=== PATIENT | female | born 1975 | race Caucasian/White ===

== ENCOUNTER 2016-11-24 22:50 | Emergency (ER) | payer OTHER ==
[2016-11-25 00:16] LABS: BASOPHIL 0.4 % (0-2); EOSINOPHIL 3.3 % (0-5); HCT 40.9 % (37.0-47.0); HGB 13.7 g/dl (12.5-16.0); LYMPHOCYTE 44.9 % (15-48); MCH 28.8 pg (25.0-31.0); MCHC 33.5 g/dL (32.0-36.0); MCV 86.1 fL (78.0-100.0); MONOCYTE 8.6 % (0-12); MPV 10.4 fL (6.0-9.5); NEUTROPHIL 42.8 % (41-80); PLT 211 K/uL (150-400); RBC 4.75 M/uL (4.20-5.40); RDW 12.5 % (11.5-14.0); WBC 4.5 K/uL (4.0-10.5)
[2016-11-25 00:28] LABS: INR 0.94 (0.9-1.2); PROTHROMBIN TIME 12.2 SECONDS (11.7-14.0); PTT 30.2 SECONDS (23.2-31.4)
[2016-11-25 00:38] LABS: BILIRUBIN - TOTAL 0.2 mg/dL (0.1-1.0); CREATININE 0.7 mg/dL (0.5-1.0); GLOBULIN (CALCULATION) 2.9 g/dL (2.2-4.2); MAGNESIUM 1.85 mg/dL (1.40-2.10); POTASSIUM 3.4 mmol/L (3.5-5.1); PRO-BNP 56 pg/mL (0-125); TOTAL PROTEIN 6.9 g/dL (6.4-8.3); TROPONIN T < 0.010 ng/mL
[2016-11-25 00:41] LABS: CKMB < 1.00 ng/mL (0.97-4.94); MYOGLOBIN < 21 ng/mL (26-65)
== END 2016-11-25 01:08 | disposition home or self-care (01) ==
LOC: FER 22:50
PROVIDERS: Emergency Medicine
DX: J11.1 Influenza due to unidentified influenza virus with other respiratory manifestations (principal); E03.9 Hypothyroidism, unspecified; E78.5 Hyperlipidemia, unspecified; Z85.41 Personal history of malignant neoplasm of cervix uteri; Z79.899 Other long term (current) drug therapy
CPT/HCPCS: 36415; 71010; 80053; 82550; 82553; 83735; 83874; 83880; 84484; 85025; 85610; 85730; 87804; 87899; 93005